=== PATIENT | female | born 1965 | race Caucasian/White ===

== ENCOUNTER 2019-05-05 19:20 | Emergency (ER) | payer SELFPAY ==
[~2019-05-05] VITALS: Ht 167.6 cm; Wt 84.0 kg
[2019-05-05] MEDS ORDERED: HYDROCODONE/ACETAMINOPHEN 5-325 MG TABLET PO ONE (20:15)
[2019-05-05] MEDS ORDERED: LIDOCAINE 1% 10 ML VIAL INJ ONE (20:15)
[2019-05-05] MEDS ORDERED: POVIDONE-IODINE 10% 120 ML SOLUTION TP ONE (20:15)
[2019-05-05] MEDS ORDERED: AMOX TR/POT CLAV 875 MG/125 MG TABLET PO ONE (21:00)
[2019-05-05 21:24] VITALS: BP 143/85
== END 2019-05-05 21:33 | disposition home or self-care (01) ==
LOC: EMS 19:20
DX: S01.511A Laceration without foreign body of lip, initial encounter (principal); W54.0XXA Bitten by dog, initial encounter; Y93.89 Activity, other specified; Y92.89 Other specified places as the place of occurrence of the external cause; Y99.8 Other external cause status
CPT/HCPCS: 40650; 99284; J3490

== ENCOUNTER 2019-05-06 13:59 | Emergency (ER) | payer SELFPAY ==
[~2019-05-06] VITALS: Ht 162.6 cm; Wt 84.0 kg
[2019-05-06] MEDS ORDERED: PERTUSS(ACELL),DIPH,TET VAC/PF 0.5 ML VIAL IM ONE (15:00)
[2019-05-06 15:21] VITALS: BP 147/56
== END 2019-05-06 15:23 | disposition home or self-care (01) ==
LOC: EMS 14:00
DX: Z23 Encounter for immunization (principal)
CPT/HCPCS: 90471; 90715

== ENCOUNTER 2019-05-12 16:59 | Emergency (ER) | payer SELFPAY ==
[~2019-05-12] VITALS: Ht 165.1 cm; Wt 84.0 kg
[2019-05-12 18:25] VITALS: BP 136/80
== END 2019-05-12 18:30 | disposition home or self-care (01) ==
LOC: EMS 16:59
DX: S01.511D Laceration without foreign body of lip, subsequent encounter (principal); Z48.02 Encounter for removal of sutures; W54.0XXD Bitten by dog, subsequent encounter

== ENCOUNTER 2022-12-21 05:39 | Emergency (ER) | payer MEDICAID, OTHER ==
[~2022-12-21] VITALS: Ht 162.6 cm; Wt 81.8 kg
[2022-12-21 05:44] VITALS: BP 156/81
[2022-12-21 08:04] LABS: COVID AG,FIA SOURCE NASAL SWAB
[2022-12-21 08:27] LABS: INFLUENZA TYPE A NEGATIVE FOR TYPE A (NEGATIVE); INFLUENZA TYPE B NEGATIVE FOR TYPE B (NEGATIVE)
[2022-12-21 08:36] LABS: RAPID GROUP A STREP NEGATIVE (NEGATIVE)
[2022-12-21] MEDS ORDERED: CefTRIAXone 1 GM/DEXTROSE 50 ML IV ONE (08:45)
[2022-12-21] MEDS ORDERED: DEXAMETHASONE SOD PHOS 4 MG/ML 5 ML VIAL IVP ONE (08:45)
[2022-12-21] MEDS ORDERED: KETOROLAC TROMETHAMINE 30 MG/ML VIAL IVP ONE (08:45)
[2022-12-21] MEDS ORDERED: PENI500T2 PO (10:39)
== END 2022-12-21 11:38 | disposition home or self-care (01) ==
LOC: EMS 05:41
DX: J36 Peritonsillar abscess (principal); Z20.822 Contact with and (suspected) exposure to COVID-19
CPT/HCPCS: 99284; 96365; 96375; 87426; 87430; 87804; J0696; J1100; J1885

== ENCOUNTER 2025-03-03 05:02 | Inpatient (IN) | payer OTHER ==
[~2025-03-03] VITALS: Ht 167.6 cm; Wt 79.4 kg
[2025-03-03] VITALS (19 sets, daily range): BP systolic 82–127; BP diastolic 41–68; PULSE 78–136; RESP 24–31; TEMP 94.8–99.4; O2SAT 86–100
[~2025-03-03 05:02] MED LIST: PENI500T2 PO
[2025-03-03] MEDS ORDERED: ETOMIDATE 2 MG/ML 10 ML VIAL ONE (05:07)
[2025-03-03] MEDS ORDERED: ROCURONIUM BROMIDE 10 MG/ML 5 ML VIAL ONE (05:08)
[2025-03-03] MEDS: ETOMIDATE 2 MG/ML 10 ML VIAL IVP ONE (05:11)
[2025-03-03] MEDS: ROCURONIUM BROMIDE 10 MG/ML 5 ML VIAL IVP ONE (05:11)
[2025-03-03] MEDS ORDERED: 0.9% SODIUM CHLORIDE 10 ML SYRINGE IVP PRN (05:30)
[2025-03-03 05:42] LABS: PLATELET COUNT (AUTO) 331 K/uL (150-450); RED BLOOD CELL COUNT(AUTO) 4.53 MIL/uL (4.00-5.20); RED CELL DISTRIBUTION WIDTH 15.2 % (11.5-14.5); WHITE BLOOD COUNT (AUTO) 13.8 K/uL (4.5-11.0)
[2025-03-03 05:43] LABS: CALCIUM, TOTAL 9.3 mg/dL (8.8-10.5); CREATININE 1.09 mg/dL (0.60-1.30); GLOMERULAR FILTR. RATE CALC 51 mL/min (>60); GLUCOSE,RANDOM 214 mg/dL (70-110); SODIUM SERUM 145 mmol/L (136-145); UREA NITROGEN, BLOOD 18 mg/dL (7-18)
[2025-03-03] MEDS: PROPOFOL 1000 MG/ISO-OSM 100 ML IV PRN (05:44)
[2025-03-03] MEDS ORDERED: PROPOFOL 1000 MG/ISO-OSM 100 ML IV PRN (05:45)
[2025-03-03 05:47] LABS: ASPARTATE AMINOTRANSFERASE 42 U/L (15-37); CREATINE KINASE, TOTAL ONLY 120 U/L (26-192); TOTAL PROTEIN, SERUM 7.2 g/dL (6.4-8.2)
[2025-03-03 05:50] LABS: TROPONIN I-HIGH SENSITIVITY 12 ng/L (<51)
[2025-03-03 05:55] LABS: LACTIC ACID 14.3 mmol/L (0.4-2.0)
[2025-03-03] MEDS: ALBUTEROL SULFATE 2.5 MG/0.5 ML NEB SOLUTION NEB ONE ×3 (06:27→10:09)
[2025-03-03 06:31] LABS: ABG BASE EXCESS -12.1 mmol/L (-2.0-3.0); ABG CARBOXYHEMOGLOBIN 0.7 % (0.5-1.5); ABG HCO3 15.1 mmol/L (21.0-28.0); ABG METHEMOGLOBIN 0.7 % (0.0-1.5); ABG OXYGEN CONTENT 17.3 mL/dL (15.0-23.0); ABG OXYGEN SATURATION 94.5 % (94.0-98.0); ABG OXYHEMOGLOBIN 93.2 % (94.0-98.0); ABG PCO2 50 mmHg (32.0-45.0); ABG TOTAL HEMOGLOBIN 13.1 G/dL (12.0-16.0); FRACTIONATED INSPIRED OXYGEN 100.0 % (21-100.0); PO2, ARTERIAL BG 97.2 mmHg (83.0-108.0); SOURCE, BLOOD GAS ARTERIAL; TEMPERATURE, FAHRENHEIT, BG 99.4 FAHREN (96.0-98.6)
[2025-03-03 06:32] LABS: ABG A-A DIFF O2 564.5 mmHg (10-20.0); ABG PH 7.144 (7.350-7.450); ALLEN TEST, BLOOD GAS Positive; INSIPIRATORY PRESSURE, BG 20 cm H2O; O2 DEVICE,BLOOD GAS VENTILATOR (ROOM AIR); PEEP,BG 10 cm H2O; SITE, BLOOD GAS RT RADIAL; VENT MODE, BG Press. Control Vent (ROOM AIR)
[2025-03-03] MEDS: IPRATROPIUM BROMIDE 0.5 MG/2.5 ML NEB SOLUTION NEB ONE ×2 (06:32→10:10)
[2025-03-03] MEDS: FUROSEMIDE 20 MG/2 ML VIAL IVP ONE ×2 (06:34→07:56)
[2025-03-03 06:47] LABS: APPEARANCE,URINE HAZY (CLEAR); GLUCOSE, URINE (UA) 300-500 mg/dL (NEGATIVE); LEUKOCYTE ESTERASE ,URINE NEGATIVE (NEGATIVE); NITRATE,URINE NEGATIVE (NEGATIVE); OCCULT BLOOD,URINE MODERATE (NEGATIVE); SPECIFIC GRAVITIY, URINE 1.014 (1.003-1.030)
[2025-03-03 07:13] LABS: SULFOSALICYLIC ACID,URINE 3+ (Negative)
[2025-03-03 07:14] LABS: SQUAMOUS EPITHELIAL CELL,UR Few /LPF (None Seen)
[2025-03-03] MEDS: NITROGLYCERIN 2% (1 GM=INCH) OINTMENT PACKET TP ONE (07:56)
[2025-03-03] MEDS ORDERED: ALBUTEROL SULFATE 2.5 MG/0.5 ML 5 ML NEB SOLUTION NEB ONE (09:45)
[2025-03-03] MEDS ORDERED: SODIUM CHLORIDE 0.9% 500 ML IV ONE ×2 (10:05→11:11)
[2025-03-03] MEDS ORDERED: MAGNESIUM HYDROXIDE SUSPENSION 30 ML UDCUP PO PRN (10:30)
[2025-03-03] MEDS ORDERED: IPRATROPIUM BROMIDE 0.5 MG/2.5 ML NEB SOLUTION NEB PRN (10:30)
[2025-03-03] MEDS ORDERED: ONDANSETRON HCL 4 MG/2 ML VIAL IVP PRN (10:30)
[2025-03-03] MEDS ORDERED: BISACODYL 10 MG RECTAL RECTAL SUPPOSITORY PR PRN (10:30)
[2025-03-03] MEDS ORDERED: ALBUTEROL SULFATE 2.5 MG/0.5 ML NEB SOLUTION NEB PRN (10:30)
[2025-03-03 10:37] LABS: ABG BASE EXCESS -7.6 mmol/L (-2.0-3.0); ABG CARBOXYHEMOGLOBIN 0.4 % (0.5-1.5); ABG HCO3 17.6 mmol/L (21.0-28.0); ABG METHEMOGLOBIN 0.0 % (0.0-1.5); ABG OXYGEN CONTENT 17.8 mL/dL (15.0-23.0); ABG OXYGEN SATURATION 94.2 % (94.0-98.0); ABG OXYHEMOGLOBIN 93.8 % (94.0-98.0); ABG TOTAL HEMOGLOBIN 13.4 G/dL (12.0-16.0); FRACTIONATED INSPIRED OXYGEN 100.0 % (21-100.0); PO2, ARTERIAL BG 95.9 mmHg (83.0-108.0); SOURCE, BLOOD GAS ARTERIAL; TEMPERATURE, FAHRENHEIT, BG 99.1 FAHREN (96.0-98.6)
[2025-03-03 10:44] LABS: ABG PCO2 69 mmHg (32.0-45.0); ABG PH 7.119 (7.350-7.450)
[2025-03-03 10:48] LABS: ABG A-A DIFF O2 547.7 mmHg (10-20.0); ALLEN TEST, BLOOD GAS NO; O2 DEVICE,BLOOD GAS VENTILATOR (ROOM AIR); PEEP,BG 12 cm H2O; SET RATE, BG 30.0 min.; SITE, BLOOD GAS ARTERIAL LINE; VT, ABG 360 ml
[2025-03-03 10:49] LABS: SPONTANEOUS VT, BG 376 ml
[2025-03-03] MEDS: NOREPINEPHRINE 8 MG/0.9 % NACL 250 ML IV PRN (11:15)
[2025-03-03] MEDS ORDERED: PHENYLEPHRINE 200 MG/D5%-WATER 250 ML IV PRN (11:15)
[2025-03-03] MEDS: ALBUTEROL SULFATE 2.5 MG/0.5 ML NEB SOLUTION NEB SCH (11:32)
[2025-03-03] MEDS: IPRATROPIUM BROMIDE 0.5 MG/2.5 ML NEB SOLUTION NEB SCH (11:32)
[2025-03-03 11:38] LABS: ABG BASE EXCESS -8.6 mmol/L (-2.0-3.0); ABG CARBOXYHEMOGLOBIN 0.3 % (0.5-1.5); ABG HCO3 17.5 mmol/L (21.0-28.0); ABG METHEMOGLOBIN 0.3 % (0.0-1.5); ABG OXYGEN CONTENT 17.9 mL/dL (15.0-23.0); ABG OXYGEN SATURATION 97.6 % (94.0-98.0); ABG OXYHEMOGLOBIN 97.0 % (94.0-98.0); ABG PCO2 53 mmHg (32.0-45.0); ABG TOTAL HEMOGLOBIN 13.0 G/dL (12.0-16.0); FRACTIONATED INSPIRED OXYGEN 100.0 % (21-100.0); PO2, ARTERIAL BG 121.5 mmHg (83.0-108.0); SOURCE, BLOOD GAS ARTERIAL; TEMPERATURE, FAHRENHEIT, BG 99.0 FAHREN (96.0-98.6)
[2025-03-03 11:39] LABS: ABG A-A DIFF O2 537.7 mmHg (10-20.0); ABG PH 7.185 (7.350-7.450); O2 DEVICE,BLOOD GAS VENTILATOR (ROOM AIR); PEEP,BG 12 cm H2O; SET RATE, BG 30.0 min.; SITE, BLOOD GAS ARTERIAL LINE; VT, ABG 440 ml
[2025-03-03 11:48] LABS: TROPONIN I-HIGH SENSITIVITY 761 ng/L (<51)
[2025-03-03] MEDS: PIPERACILLIN/TAZO 3.375 GM/D5W 50 ML IV SCH (12:40)
[2025-03-03] MEDS: FentaNYL CIT 1000MCG/0.9% NACL 100 ML IV PRN (13:22)
[2025-03-03 13:31] LABS: CREATINE KINASE, TOTAL ONLY 111.0 U/L (26-192)
[2025-03-03 13:37] LABS: TROPONIN I-HIGH SENSITIVITY 1161 ng/L (<51)
[2025-03-03 15:06] LABS: ABG BASE EXCESS -11.0 mmol/L (-2.0-3.0); ABG CARBOXYHEMOGLOBIN 0.2 % (0.5-1.5); ABG HCO3 16.0 mmol/L (21.0-28.0); ABG METHEMOGLOBIN 0.1 % (0.0-1.5); ABG OXYGEN CONTENT 19.5 mL/dL (15.0-23.0); ABG OXYGEN SATURATION 99.7 % (94.0-98.0); ABG OXYHEMOGLOBIN 99.4 % (94.0-98.0); ABG PCO2 46 mmHg (32.0-45.0); ABG TOTAL HEMOGLOBIN 13.3 G/dL (12.0-16.0); FRACTIONATED INSPIRED OXYGEN 100.0 % (21-100.0); SOURCE, BLOOD GAS ARTERIAL; TEMPERATURE, FAHRENHEIT, BG 96.5 FAHREN (96.0-98.6)
[2025-03-03 15:07] LABS: ABG A-A DIFF O2 316.3 mmHg (10-20.0); ABG PH 7.193 (7.350-7.450); O2 DEVICE,BLOOD GAS VENTILATOR (ROOM AIR); PATIENT RATE, BG 30.0 min.; PEEP,BG 12 cm H2O; PO2, ARTERIAL BG 354.2 mmHg (83.0-108.0); SET RATE, BG 30.0 min.; SITE, BLOOD GAS ARTERIAL LINE; VT, ABG 440 ml
[2025-03-03 15:38] LABS: ASPARTATE AMINOTRANSFERASE 120.0 U/L (15-37); CALCIUM, TOTAL 8.0 mg/dL (8.8-10.5); CREATININE 1.26 mg/dL (0.60-1.30); GLOMERULAR FILTR. RATE CALC 43.0 mL/min (>60); GLUCOSE,RANDOM 220.0 mg/dL (70-110); PHOSPHORUS 8.4 mg/dL (2.5-4.9); SODIUM SERUM 140.0 mmol/L (136-145); TOTAL PROTEIN, SERUM 6.3 g/dL (6.4-8.2); UREA NITROGEN, BLOOD 29.0 mg/dL (7-18)
[2025-03-03] MEDS: POTASSIUM CHL 10 MEQ/WATER 50 ML IV SCH (16:40)
[2025-03-03] MEDS: HEPARIN SODIUM,PORCINE 5,000 UNITS/ML VIAL SQ SCH (16:40)
[2025-03-03 17:24] LABS: TROPONIN I-HIGH SENSITIVITY 812 ng/L (<51)
[2025-03-03] MEDS ORDERED: DEXTROSE 50%-WATER 25 GM/50 ML SYRINGE IVP PRN (18:15)
[2025-03-03] MEDS: INSULIN LISPRO 100 UNITS/ML SQ PRN (18:53)
[2025-03-03 19:25] LABS: GLUCOMETER DEV NAME(LOC) ICU.S6; GLUCOSE,POINT OF CARE 192 MG/DL (70-110)
[2025-03-03] MEDS: DOCUSATE SODIUM 100 MG CAPSULE PO SCH (21:00)
[2025-03-03 21:31] LABS: ABG BASE EXCESS -9.8 mmol/L (-2.0-3.0); ABG CARBOXYHEMOGLOBIN 0.6 % (0.5-1.5); ABG HCO3 16.7 mmol/L (21.0-28.0); ABG METHEMOGLOBIN 0.6 % (0.0-1.5); ABG OXYGEN CONTENT 18.3 mL/dL (15.0-23.0); ABG OXYGEN SATURATION 98.5 % (94.0-98.0); ABG OXYHEMOGLOBIN 97.3 % (94.0-98.0); ABG PCO2 44 mmHg (32.0-45.0); ABG TOTAL HEMOGLOBIN 13.2 G/dL (12.0-16.0); FRACTIONATED INSPIRED OXYGEN 55.0 % (21-100.0); PO2, ARTERIAL BG 107.3 mmHg (83.0-108.0); SOURCE, BLOOD GAS ARTERIAL; TEMPERATURE, FAHRENHEIT, BG 92.1 FAHREN (96.0-98.6)
[2025-03-03 21:41] LABS: PHOSPHORUS 5.5 mg/dL (2.5-4.9)
[2025-03-03 21:41] LABS: ABG A-A DIFF O2 240.3 mmHg (10-20.0); ABG PH 7.222 (7.350-7.450); O2 DEVICE,BLOOD GAS VENT (ROOM AIR); PEEP,BG 10 cm H2O; SET RATE, BG 30.0 min.; SITE, BLOOD GAS ARTERIAL LINE; VT, ABG 440 ml
[2025-03-03] MEDS: ETHYL ALCOHOL 62% ANTISEPTIC NASAL SANITIZER 0.6 ML AMPUL NASAL SCH (21:59)
[2025-03-03 23:15] LABS: ASPARTATE AMINOTRANSFERASE 93.0 U/L (15-37); CALCIUM, TOTAL 8.2 mg/dL (8.8-10.5); CREATININE 1.0 mg/dL (0.60-1.30); GLOMERULAR FILTR. RATE CALC 57.0 mL/min (>60); GLUCOSE,RANDOM 279.0 mg/dL (70-110); SODIUM SERUM 143.0 mmol/L (136-145); TOTAL PROTEIN, SERUM 6.4 g/dL (6.4-8.2); UREA NITROGEN, BLOOD 28.0 mg/dL (7-18)
[2025-03-04] VITALS (18 sets, daily range): BP systolic 111–147; BP diastolic 39–71; PULSE 74–126; RESP 24–30; TEMP 90.9–99.2; O2SAT 99–100
[2025-03-04 00:46] LABS: GLUCOMETER DEV NAME(LOC) ICU.S6; GLUCOSE,POINT OF CARE 256 MG/DL (70-110)
[2025-03-04] MEDS: PROPOFOL 1000 MG/ISO-OSM 100 ML IV PRN (02:57)
[2025-03-04 03:35] LABS: ABG BASE EXCESS -8.5 mmol/L (-2.0-3.0); ABG CARBOXYHEMOGLOBIN 0.6 % (0.5-1.5); ABG HCO3 17.9 mmol/L (21.0-28.0); ABG METHEMOGLOBIN 0.6 % (0.0-1.5); ABG OXYGEN CONTENT 17.4 mL/dL (15.0-23.0); ABG OXYGEN SATURATION 98.4 % (94.0-98.0); ABG OXYHEMOGLOBIN 97.2 % (94.0-98.0); ABG PCO2 38 mmHg (32.0-45.0); ABG PH 7.291 (7.350-7.450); ABG TOTAL HEMOGLOBIN 12.6 G/dL (12.0-16.0); FRACTIONATED INSPIRED OXYGEN 45.0 % (21-100.0); PO2, ARTERIAL BG 97.3 mmHg (83.0-108.0); SOURCE, BLOOD GAS ARTERIAL; TEMPERATURE, FAHRENHEIT, BG 92.3 FAHREN (96.0-98.6)
[2025-03-04 03:38] LABS: PHOSPHORUS 3.1 mg/dL (2.5-4.9)
[2025-03-04 03:49] LABS: ASPARTATE AMINOTRANSFERASE 69.0 U/L (15-37); CALCIUM, TOTAL 8.4 mg/dL (8.8-10.5); CREATININE 0.98 mg/dL (0.60-1.30); GLOMERULAR FILTR. RATE CALC 58.0 mL/min (>60); GLUCOSE,RANDOM 320.0 mg/dL (70-110); SODIUM SERUM 141.0 mmol/L (136-145); TOTAL PROTEIN, SERUM 6.1 g/dL (6.4-8.2); UREA NITROGEN, BLOOD 27.0 mg/dL (7-18)
[2025-03-04 03:56] LABS: ABG A-A DIFF O2 183.6 mmHg (10-20.0); O2 DEVICE,BLOOD GAS VENT (ROOM AIR); PEEP,BG 8 cm H2O; SET RATE, BG 30.0 min.; SITE, BLOOD GAS ARTERIAL LINE; VT, ABG 440 ml
[2025-03-04] MEDS ORDERED: POTASSIUM CHLORIDE 10% 40 MEQ/30 ML LIQUID UDCUP GT PRN (04:00)
[2025-03-04] MEDS: POTASSIUM CHL 10 MEQ/WATER 50 ML IV PRN (04:11)
[2025-03-04 05:12] LABS: BAND NEUTROPHILS % (MANUAL) 0 % (0-5)
[2025-03-04 05:15] LABS: PLATELET COUNT (AUTO) 163 K/uL (150-450); RED BLOOD CELL COUNT(AUTO) 3.93 MIL/uL (4.00-5.20); RED CELL DISTRIBUTION WIDTH 13.8 % (11.5-14.5); WHITE BLOOD COUNT (AUTO) 12.8 K/uL (4.5-11.0)
[2025-03-04 05:21] LABS: LYMPHOCYTES % (MANUAL) 5 % (22-44); MONOCYTES % (MANUAL) 3 % (2-9); SEGMENTED NEUTROPHILS % 92 % (40-70)
[2025-03-04 06:30] LABS: GLUCOMETER DEV NAME(LOC) ICUN.5; GLUCOSE,POINT OF CARE 284 MG/DL (70-110)
[2025-03-04 09:12] LABS: PHOSPHORUS 3.8 mg/dL (2.5-4.9)
[2025-03-04 09:13] LABS: ASPARTATE AMINOTRANSFERASE 58 U/L (15-37); CALCIUM, TOTAL 8.6 mg/dL (8.8-10.5); CREATININE 0.72 mg/dL (0.60-1.30); GLOMERULAR FILTR. RATE CALC > 60 mL/min (>60); GLUCOSE,RANDOM 304 mg/dL (70-110); SODIUM SERUM 140 mmol/L (136-145); TOTAL PROTEIN, SERUM 6.2 g/dL (6.4-8.2); UREA NITROGEN, BLOOD 24 mg/dL (7-18)
[2025-03-04] MEDS: PANTOPRAZOLE SODIUM 40 MG/VIAL IVP SCH (09:26)
[2025-03-04 10:05] LABS: ABG BASE EXCESS -6.1 mmol/L (-2.0-3.0); ABG CARBOXYHEMOGLOBIN 0.1 % (0.5-1.5); ABG HCO3 19.5 mmol/L (21.0-28.0); ABG METHEMOGLOBIN 0.3 % (0.0-1.5); ABG OXYGEN CONTENT 16.4 mL/dL (15.0-23.0); ABG OXYGEN SATURATION 96.9 % (94.0-98.0); ABG OXYHEMOGLOBIN 96.5 % (94.0-98.0); ABG PCO2 39 mmHg (32.0-45.0); ABG PH 7.321 (7.350-7.450); ABG TOTAL HEMOGLOBIN 12.0 G/dL (12.0-16.0); FRACTIONATED INSPIRED OXYGEN 45.0 % (21-100.0); PO2, ARTERIAL BG 76.8 mmHg (83.0-108.0); SOURCE, BLOOD GAS ARTERIAL; TEMPERATURE, FAHRENHEIT, BG 90.9 FAHREN (96.0-98.6)
[2025-03-04 10:06] LABS: O2 DEVICE,BLOOD GAS VENTILATOR (ROOM AIR); PATIENT RATE, BG 24.0 min.; PEEP,BG 5 cm H2O; SET RATE, BG 24.0 min.; SITE, BLOOD GAS ALINE; VT, ABG 440 ml
[2025-03-04] MEDS: FentaNYL CIT 1000MCG/0.9% NACL 100 ML IV PRN (14:14)
[2025-03-04 15:05] LABS: ABG BASE EXCESS -3.2 mmol/L (-2.0-3.0); ABG CARBOXYHEMOGLOBIN 0.3 % (0.5-1.5); ABG HCO3 21.8 mmol/L (21.0-28.0); ABG METHEMOGLOBIN 0.3 % (0.0-1.5); ABG OXYGEN CONTENT 16.0 mL/dL (15.0-23.0); ABG OXYGEN SATURATION 95.9 % (94.0-98.0); ABG OXYHEMOGLOBIN 95.3 % (94.0-98.0); ABG PCO2 41 mmHg (32.0-45.0); ABG PH 7.355 (7.350-7.450); ABG TOTAL HEMOGLOBIN 11.9 G/dL (12.0-16.0); FRACTIONATED INSPIRED OXYGEN 40.0 % (21-100.0); PO2, ARTERIAL BG 76.9 mmHg (83.0-108.0); SOURCE, BLOOD GAS ARTERIAL; TEMPERATURE, FAHRENHEIT, BG 95.5 FAHREN (96.0-98.6)
[2025-03-04 15:06] LABS: ALLEN TEST, BLOOD GAS POS; O2 DEVICE,BLOOD GAS VENTILATOR (ROOM AIR); PATIENT RATE, BG 26.0 min.; PEEP,BG 5 cm H2O; SET RATE, BG 26.0 min.; SITE, BLOOD GAS RT BRACHIAL; VT, ABG 440 ml
[2025-03-04 15:16] LABS: PHOSPHORUS 3.6 mg/dL (2.5-4.9)
[2025-03-04 17:38] LABS: CALCIUM, TOTAL 9.1 mg/dL (8.8-10.5); CREATININE 0.68 mg/dL (0.60-1.30); GLOMERULAR FILTR. RATE CALC > 60 mL/min (>60); GLUCOSE,RANDOM 239 mg/dL (70-110); SODIUM SERUM 144 mmol/L (136-145); UREA NITROGEN, BLOOD 26 mg/dL (7-18)
[2025-03-04 17:43] LABS: ASPARTATE AMINOTRANSFERASE 57 U/L (15-37); TOTAL PROTEIN, SERUM 6.2 g/dL (6.4-8.2)
[2025-03-04 17:55] LABS: GLUCOMETER DEV NAME(LOC) ICUN.5; GLUCOSE,POINT OF CARE 246 MG/DL (70-110)
[2025-03-04] MEDS ORDERED: HEPARIN SODIUM,PORCINE 5,000 UNITS/ML VIAL IVP PRN (18:15)
[2025-03-04 18:36] LABS: PLATELET COUNT (AUTO) 183 K/uL (150-450); RED BLOOD CELL COUNT(AUTO) 3.87 MIL/uL (4.00-5.20); RED CELL DISTRIBUTION WIDTH 14.2 % (11.5-14.5); WHITE BLOOD COUNT (AUTO) 23.0 K/uL (4.5-11.0)
[2025-03-04] MEDS: HEPARIN SODIUM 25000 UNITS/D5W 250 ML IV PRN (19:33)
[2025-03-04] MEDS: ACETAMINOPHEN 325 MG TABLET PO PRN (21:45)
[2025-03-04 23:41] LABS: GLUCOMETER DEV NAME(LOC) ICU.S6; GLUCOSE,POINT OF CARE 182 MG/DL (70-110)
[2025-03-05] VITALS (21 sets, daily range): BP systolic 109–148; BP diastolic 47–65; PULSE 98–125; RESP 26–28; TEMP 99.5–100.8; O2SAT 94–99
[2025-03-05 02:26] LABS: GLUCOMETER DEV NAME(LOC) ICU.S6; GLUCOSE,POINT OF CARE 168 MG/DL (70-110)
[2025-03-05 05:42] LABS: PLATELET COUNT (AUTO) 181 K/uL (150-450); RED BLOOD CELL COUNT(AUTO) 3.53 MIL/uL (4.00-5.20); RED CELL DISTRIBUTION WIDTH 13.9 % (11.5-14.5); WHITE BLOOD COUNT (AUTO) 24.6 K/uL (4.5-11.0)
[2025-03-05 05:44] LABS: CALCIUM, TOTAL 8.8 mg/dL (8.8-10.5); CREATININE 0.91 mg/dL (0.60-1.30); GLOMERULAR FILTR. RATE CALC > 60 mL/min (>60); GLUCOSE,RANDOM 213 mg/dL (70-110); SODIUM SERUM 145 mmol/L (136-145); UREA NITROGEN, BLOOD 38 mg/dL (7-18)
[2025-03-05 06:35] LABS: GLUCOMETER DEV NAME(LOC) ICU.S6; GLUCOSE,POINT OF CARE 242 MG/DL (70-110)
[2025-03-05] MEDS: DOCUSATE SODIUM 100 MG/10 ML LIQUID UDCUP NG SCH (13:20)
[2025-03-05] MEDS ORDERED: DICL100G60 TP (13:55)
[2025-03-05] MEDS ORDERED: CHOL25TA4 PO (13:55)
[2025-03-05] MEDS ORDERED: XALA2.5OS OU (13:55)
[2025-03-05] MEDS ORDERED: IBUP-1492 PO (13:55)
[2025-03-05] MEDS ORDERED: SODIUM CHLORIDE 0.9% 250 ML IV ONE (22:45)
[2025-03-06] VITALS (23 sets, daily range): BP systolic 106–152; BP diastolic 51–73; PULSE 83–117; RESP 15–30; TEMP 98.7–100.8; O2SAT 96–100
[2025-03-06 02:06] LABS: GLUCOMETER DEV NAME(LOC) ICU.S6; GLUCOSE,POINT OF CARE 205 MG/DL (70-110)
[2025-03-06 02:06] LABS: GLUCOMETER DEV NAME(LOC) ICU.S6; GLUCOSE,POINT OF CARE 220 MG/DL (70-110)
[2025-03-06 02:06] LABS: GLUCOMETER DEV NAME(LOC) ICU.S6; GLUCOSE,POINT OF CARE 192 MG/DL (70-110)
[2025-03-06 05:49] LABS: PLATELET COUNT (AUTO) 198 K/uL (150-450); RED BLOOD CELL COUNT(AUTO) 3.38 MIL/uL (4.00-5.20); RED CELL DISTRIBUTION WIDTH 14.0 % (11.5-14.5); WHITE BLOOD COUNT (AUTO) 25.2 K/uL (4.5-11.0)
[2025-03-06 05:53] LABS: CALCIUM, TOTAL 8.7 mg/dL (8.8-10.5); CREATININE 0.70 mg/dL (0.60-1.30); GLOMERULAR FILTR. RATE CALC > 60 mL/min (>60); GLUCOSE,RANDOM 198 mg/dL (70-110); SODIUM SERUM 146 mmol/L (136-145); UREA NITROGEN, BLOOD 41 mg/dL (7-18)
[2025-03-06 07:00] LABS: GLUCOMETER DEV NAME(LOC) ICU.S6; GLUCOSE,POINT OF CARE 167 MG/DL (70-110)
[2025-03-06] MEDS ORDERED: SODIUM CHLORIDE 0.9% 250 ML IV ONE (08:02)
[2025-03-06] MEDS: DEXMEDETOMIDINE 400 MCG/NS 100 ML IV PRN (09:05)
[2025-03-06 12:15] LABS: GLUCOMETER DEV NAME(LOC) ICU.S6; GLUCOSE,POINT OF CARE 160 MG/DL (70-110)
[2025-03-06 14:44] LABS: ABG BASE EXCESS 3.3 mmol/L (-2.0-3.0); ABG CARBOXYHEMOGLOBIN 0.3 % (0.5-1.5); ABG HCO3 27.2 mmol/L (21.0-28.0); ABG METHEMOGLOBIN 0.3 % (0.0-1.5); ABG OXYGEN CONTENT 13.7 mL/dL (15.0-23.0); ABG OXYGEN SATURATION 96.8 % (94.0-98.0); ABG OXYHEMOGLOBIN 96.2 % (94.0-98.0); ABG PCO2 44 mmHg (32.0-45.0); ABG PH 7.421 (7.350-7.450); ABG TOTAL HEMOGLOBIN 10.0 G/dL (12.0-16.0); FRACTIONATED INSPIRED OXYGEN 35.0 % (21-100.0); PO2, ARTERIAL BG 108.1 mmHg (83.0-108.0); SOURCE, BLOOD GAS ARTERIAL; TEMPERATURE, FAHRENHEIT, BG 100.9 FAHREN (96.0-98.6)
[2025-03-06 14:45] LABS: ABG A-A DIFF O2 89.4 mmHg (10-20.0); ALLEN TEST, BLOOD GAS Positive; O2 DEVICE,BLOOD GAS VENTILATOR (ROOM AIR); PATIENT RATE, BG 16.0 min.; PEEP,BG 5 cm H2O; PRESSURE SUPPORT, BG 8 cm H2O; SITE, BLOOD GAS LFT RADIAL; SPONTANEOUS VT, BG 440 ml; VENT MODE, BG CPAP (ROOM AIR)
[2025-03-06 18:26] LABS: GLUCOMETER DEV NAME(LOC) ICUN.5; GLUCOSE,POINT OF CARE 175 MG/DL (70-110)
[2025-03-07] VITALS (38 sets, daily range): BP systolic 113–142; BP diastolic 46–92; PULSE 57–102; RESP 20–32; TEMP 99.4–102.1; O2SAT 97–99
[2025-03-07 01:00] LABS: GLUCOMETER DEV NAME(LOC) ICU.S6; GLUCOSE,POINT OF CARE 139 MG/DL (70-110)
[2025-03-07 01:00] LABS: GLUCOMETER DEV NAME(LOC) ICU.S6; GLUCOSE,POINT OF CARE 147 MG/DL (70-110)
[2025-03-07 06:25] LABS: PLATELET COUNT (AUTO) 183 K/uL (150-450); RED BLOOD CELL COUNT(AUTO) 3.33 MIL/uL (4.00-5.20); RED CELL DISTRIBUTION WIDTH 13.9 % (11.5-14.5); WHITE BLOOD COUNT (AUTO) 17.1 K/uL (4.5-11.0)
[2025-03-07 06:44] LABS: ASPARTATE AMINOTRANSFERASE 698 U/L (15-37); CALCIUM, TOTAL 8.5 mg/dL (8.8-10.5); CREATININE 0.67 mg/dL (0.60-1.30); GLOMERULAR FILTR. RATE CALC > 60 mL/min (>60); GLUCOSE,RANDOM 160 mg/dL (70-110); SODIUM SERUM 146 mmol/L (136-145); TOTAL PROTEIN, SERUM 6.1 g/dL (6.4-8.2); UREA NITROGEN, BLOOD 36 mg/dL (7-18)
[2025-03-07] MEDS: HEPARIN SODIUM,PORCINE 5,000 UNITS/ML VIAL IVP PRN (06:53)
[2025-03-07 11:43] LABS: PLATELET COUNT (AUTO) 180 K/uL (150-450); RED BLOOD CELL COUNT(AUTO) 3.31 MIL/uL (4.00-5.20); RED CELL DISTRIBUTION WIDTH 13.7 % (11.5-14.5); WHITE BLOOD COUNT (AUTO) 16.5 K/uL (4.5-11.0)
[2025-03-07 15:00] LABS: ABG BASE EXCESS 3.6 mmol/L (-2.0-3.0); ABG CARBOXYHEMOGLOBIN 0.3 % (0.5-1.5); ABG HCO3 27.5 mmol/L (21.0-28.0); ABG METHEMOGLOBIN 0.3 % (0.0-1.5); ABG OXYGEN CONTENT 13.6 mL/dL (15.0-23.0); ABG OXYGEN SATURATION 96.4 % (94.0-98.0); ABG OXYHEMOGLOBIN 95.8 % (94.0-98.0); ABG PCO2 43 mmHg (32.0-45.0); ABG PH 7.434 (7.350-7.450); ABG TOTAL HEMOGLOBIN 10.0 G/dL (12.0-16.0); FRACTIONATED INSPIRED OXYGEN 35.0 % (21-100.0); PO2, ARTERIAL BG 102.9 mmHg (83.0-108.0); SOURCE, BLOOD GAS ARTERIAL; TEMPERATURE, FAHRENHEIT, BG 101.7 FAHREN (96.0-98.6)
[2025-03-07 15:01] LABS: ABG A-A DIFF O2 95.5 mmHg (10-20.0); ALLEN TEST, BLOOD GAS Positive; O2 DEVICE,BLOOD GAS VENTILATOR (ROOM AIR); PEEP,BG 5 cm H2O; PRESSURE SUPPORT, BG 8 cm H2O; SITE, BLOOD GAS RT RADIAL; VENT MODE, BG CPAP (ROOM AIR)
[2025-03-07 16:25] LABS: GLUCOMETER DEV NAME(LOC) ICU.S6; GLUCOSE,POINT OF CARE 160 MG/DL (70-110)
[2025-03-07 18:25] LABS: GLUCOMETER DEV NAME(LOC) ICU.S6; GLUCOSE,POINT OF CARE 138 MG/DL (70-110)
[2025-03-07 19:51] LABS: GLUCOMETER DEV NAME(LOC) ICUN.5; GLUCOSE,POINT OF CARE 148 MG/DL (70-110)
[2025-03-08] VITALS (25 sets, daily range): BP systolic 94–147; BP diastolic 28–76; PULSE 61–104; RESP 22–33; TEMP 96.9–100.8; O2SAT 96–100
[2025-03-08 04:56] LABS: GLUCOMETER DEV NAME(LOC) ICUN.5; GLUCOSE,POINT OF CARE 142 MG/DL (70-110)
[2025-03-08 05:08] LABS: HEPATITIS B CORE IGM Negative (Negative); HEPATITIS C AB (EIA) Non Reactive (Non Reactive)
[2025-03-08 06:09] LABS: PLATELET COUNT (AUTO) 154 K/uL (150-450); RED BLOOD CELL COUNT(AUTO) 3.25 MIL/uL (4.00-5.20); RED CELL DISTRIBUTION WIDTH 13.7 % (11.5-14.5); WHITE BLOOD COUNT (AUTO) 12.5 K/uL (4.5-11.0)
[2025-03-08 06:18] LABS: CALCIUM, TOTAL 8.7 mg/dL (8.8-10.5); CREATININE 0.47 mg/dL (0.60-1.30); GLOMERULAR FILTR. RATE CALC > 60 mL/min (>60); GLUCOSE,RANDOM 140 mg/dL (70-110); SODIUM SERUM 147 mmol/L (136-145); UREA NITROGEN, BLOOD 32 mg/dL (7-18)
[2025-03-08 08:11] LABS: GLUCOMETER DEV NAME(LOC) ICUN.5; GLUCOSE,POINT OF CARE 127 MG/DL (70-110)
[2025-03-08 10:39] LABS: ABG BASE EXCESS -0.8 mmol/L (-2.0-3.0); ABG CARBOXYHEMOGLOBIN 0.3 % (0.5-1.5); ABG HCO3 24.3 mmol/L (21.0-28.0); ABG METHEMOGLOBIN 0.3 % (0.0-1.5); ABG OXYGEN CONTENT 13.8 mL/dL (15.0-23.0); ABG OXYGEN SATURATION 95.5 % (94.0-98.0); ABG OXYHEMOGLOBIN 94.9 % (94.0-98.0); ABG PCO2 30 mmHg (32.0-45.0); ABG PH 7.487 (7.350-7.450); ABG TOTAL HEMOGLOBIN 10.3 G/dL (12.0-16.0); FRACTIONATED INSPIRED OXYGEN 35.0 % (21-100.0); PO2, ARTERIAL BG 87.1 mmHg (83.0-108.0); SOURCE, BLOOD GAS ARTERIAL; TEMPERATURE, FAHRENHEIT, BG 101.0 FAHREN (96.0-98.6)
[2025-03-08 10:40] LABS: ABG A-A DIFF O2 125.9 mmHg (10-20.0); ALLEN TEST, BLOOD GAS Positive; O2 DEVICE,BLOOD GAS VENTILATOR (ROOM AIR); SITE, BLOOD GAS RT RADIAL; VENT MODE, BG CPAP (ROOM AIR)
[2025-03-08 10:41] LABS: PATIENT RATE, BG 33.0 min.; PEEP,BG 0 cm H2O; PRESSURE SUPPORT, BG 8 cm H2O; SPONTANEOUS VT, BG 590 ml
[2025-03-08 13:21] LABS: GLUCOMETER DEV NAME(LOC) ICU.S6; GLUCOSE,POINT OF CARE 106 MG/DL (70-110)
[2025-03-08] MEDS: METOPROLOL SUCCINATE 25 MG ER TABLET PO SCH (14:21)
[2025-03-08] MEDS: SPIRONOLACTONE 25 MG TABLET PO SCH (14:21)
[2025-03-08] MEDS: ATORVASTATIN CALCIUM 40 MG TABLET PO SCH (14:21)
[2025-03-08] MEDS ORDERED: SODIUM CHLORIDE 0.9% 250 ML IV ONE (17:34)
[2025-03-08 17:48] LABS: ASPARTATE AMINOTRANSFERASE 496 U/L (15-37); CALCIUM, TOTAL 8.6 mg/dL (8.8-10.5); CREATININE 0.56 mg/dL (0.60-1.30); GLOMERULAR FILTR. RATE CALC > 60 mL/min (>60); GLUCOSE,RANDOM 131 mg/dL (70-110); SODIUM SERUM 145 mmol/L (136-145); TOTAL PROTEIN, SERUM 6.0 g/dL (6.4-8.2); UREA NITROGEN, BLOOD 33 mg/dL (7-18)
[2025-03-08 18:10] LABS: GLUCOMETER DEV NAME(LOC) ICUN.5; GLUCOSE,POINT OF CARE 116 MG/DL (70-110)
[2025-03-09] VITALS (21 sets, daily range): BP systolic 93–148; BP diastolic 43–75; PULSE 62–127; RESP 22–42; TEMP 98–101.3; O2SAT 85–100
[2025-03-09 05:21] LABS: PLATELET COUNT (AUTO) 136 K/uL (150-450); RED BLOOD CELL COUNT(AUTO) 3.17 MIL/uL (4.00-5.20); RED CELL DISTRIBUTION WIDTH 13.7 % (11.5-14.5); WHITE BLOOD COUNT (AUTO) 11.5 K/uL (4.5-11.0)
[2025-03-09 05:30] LABS: CALCIUM, TOTAL 8.4 mg/dL (8.8-10.5); CREATININE 0.45 mg/dL (0.60-1.30); GLOMERULAR FILTR. RATE CALC > 60 mL/min (>60); GLUCOSE,RANDOM 146 mg/dL (70-110); SODIUM SERUM 146 mmol/L (136-145); UREA NITROGEN, BLOOD 26 mg/dL (7-18)
[2025-03-09 05:45] LABS: GLUCOMETER DEV NAME(LOC) ICU.S6; GLUCOSE,POINT OF CARE 134 MG/DL (70-110)
[2025-03-09 05:45] LABS: GLUCOMETER DEV NAME(LOC) ICU.S6; GLUCOSE,POINT OF CARE 138 MG/DL (70-110)
[2025-03-09] MEDS: LOSARTAN POTASSIUM 25 MG TABLET PO SCH (08:35)
[2025-03-09] MEDS: ASPIRIN 81 MG CHEWABLE TABLET PO SCH (08:35)
[2025-03-09 08:58] LABS: ABG BASE EXCESS 1.0 mmol/L (-2.0-3.0); ABG CARBOXYHEMOGLOBIN 0.2 % (0.5-1.5); ABG HCO3 25.4 mmol/L (21.0-28.0); ABG METHEMOGLOBIN 0.3 % (0.0-1.5); ABG OXYGEN CONTENT 13.2 mL/dL (15.0-23.0); ABG OXYGEN SATURATION 95.4 % (94.0-98.0); ABG OXYHEMOGLOBIN 94.9 % (94.0-98.0); ABG PCO2 40 mmHg (32.0-45.0); ABG PH 7.419 (7.350-7.450); ABG TOTAL HEMOGLOBIN 9.8 G/dL (12.0-16.0); FRACTIONATED INSPIRED OXYGEN 35.0 % (21-100.0); PO2, ARTERIAL BG 87.2 mmHg (83.0-108.0); SOURCE, BLOOD GAS ARTERIAL; TEMPERATURE, FAHRENHEIT, BG 100.0 FAHREN (96.0-98.6)
[2025-03-09 08:59] LABS: ALLEN TEST, BLOOD GAS Positive; O2 DEVICE,BLOOD GAS VENTILATOR (ROOM AIR); PEEP,BG 5 cm H2O; PRESSURE SUPPORT, BG 8 cm H2O; SITE, BLOOD GAS RT RADIAL; VENT MODE, BG CPAP (ROOM AIR)
[2025-03-09 13:25] LABS: ABG BASE EXCESS 0.3 mmol/L (-2.0-3.0); ABG CARBOXYHEMOGLOBIN 0.2 % (0.5-1.5); ABG HCO3 25.4 mmol/L (21.0-28.0); ABG METHEMOGLOBIN 0.3 % (0.0-1.5); ABG OXYGEN CONTENT 13.9 mL/dL (15.0-23.0); ABG OXYGEN SATURATION 98.5 % (94.0-98.0); ABG OXYHEMOGLOBIN 98.0 % (94.0-98.0); ABG PCO2 28 mmHg (32.0-45.0); ABG PH 7.530 (7.350-7.450); ABG TOTAL HEMOGLOBIN 9.9 G/dL (12.0-16.0); FRACTIONATED INSPIRED OXYGEN 32.0 % (21-100.0); PO2, ARTERIAL BG 136.6 mmHg (83.0-108.0); SOURCE, BLOOD GAS ARTERIAL; TEMPERATURE, FAHRENHEIT, BG 101.1 FAHREN (96.0-98.6)
[2025-03-09 13:26] LABS: ALLEN TEST, BLOOD GAS POS; SITE, BLOOD GAS RT RADIAL
[2025-03-09 13:27] LABS: FLOW, BLOOD GAS 3.00 L/min (0.00-15.00); O2 DEVICE,BLOOD GAS NC (ROOM AIR)
[2025-03-09] MEDS: ACETAMINOPHEN 650 MG/ISO-OSM 65 ML IV PRN (15:15)
[2025-03-09] MEDS ORDERED: SODIUM CHLORIDE 0.9% 250 ML IV ONE (22:57)
[2025-03-10] VITALS (19 sets, daily range): BP systolic 117–160; BP diastolic 57–81; PULSE 76–115; RESP 17–30; TEMP 98.9–101.6; O2SAT 40–99
[2025-03-10 00:16] LABS: GLUCOMETER DEV NAME(LOC) ICUN.5; GLUCOSE,POINT OF CARE 106 MG/DL (70-110)
[2025-03-10 03:41] LABS: GLUCOMETER DEV NAME(LOC) ICU.S6; GLUCOSE,POINT OF CARE 111 MG/DL (70-110)
[2025-03-10 06:30] LABS: PLATELET COUNT (AUTO) 177 K/uL (150-450); RED BLOOD CELL COUNT(AUTO) 3.45 MIL/uL (4.00-5.20); RED CELL DISTRIBUTION WIDTH 13.7 % (11.5-14.5); WHITE BLOOD COUNT (AUTO) 14.7 K/uL (4.5-11.0)
[2025-03-10 06:41] LABS: CALCIUM, TOTAL 8.6 mg/dL (8.8-10.5); CREATININE 0.42 mg/dL (0.60-1.30); GLOMERULAR FILTR. RATE CALC > 60 mL/min (>60); GLUCOSE,RANDOM 109 mg/dL (70-110); SODIUM SERUM 144 mmol/L (136-145); UREA NITROGEN, BLOOD 18 mg/dL (7-18)
[2025-03-10 06:55] LABS: GLUCOMETER DEV NAME(LOC) ICU.S6; GLUCOSE,POINT OF CARE 106 MG/DL (70-110)
[2025-03-10] MEDS ORDERED: FUROSEMIDE 40 MG/4 ML VIAL IVP SCH (13:15)
[2025-03-10] MEDS: FUROSEMIDE 40 MG/4 ML VIAL IVP SCH (13:28)
[2025-03-10 14:56] LABS: GLUCOMETER DEV NAME(LOC) ICUN.5; GLUCOSE,POINT OF CARE 111 MG/DL (70-110)
[2025-03-10] MEDS: HEPARIN SODIUM,PORCINE 5,000 UNITS/ML VIAL SQ SCH (16:17)
[2025-03-10] MEDS ORDERED: SODIUM CHLORIDE 0.9% 250 ML IV ONE (16:31)
[2025-03-10] MEDS: POTASSIUM CHLORIDE 10% 40 MEQ/30 ML LIQUID UDCUP GT PRN (20:48)
[2025-03-10] MEDS: ZOLPIDEM TARTRATE 5 MG TABLET PO PRN (20:49)
[2025-03-10] MEDS: MORPHINE SULFATE 2 MG/ML SYRINGE IVP PRN (23:58)
[2025-03-11] VITALS (16 sets, daily range): BP systolic 96–161; BP diastolic 57–99; PULSE 93–112; RESP 20–34; TEMP 98.8–100.7; O2SAT 93–98
[2025-03-11] MEDS: POTASSIUM CHL 10 MEQ/WATER 50 ML IV PRN (02:34)
[2025-03-11] MEDS: LABETALOL HCL 5 MG/ML 20 ML VIAL IVP PRN (04:41)
[2025-03-11 05:50] LABS: GLUCOMETER DEV NAME(LOC) ICUN.5; GLUCOSE,POINT OF CARE 129 MG/DL (70-110)
[2025-03-11 06:01] LABS: PLATELET COUNT (AUTO) 263 K/uL (150-450); RED BLOOD CELL COUNT(AUTO) 3.54 MIL/uL (4.00-5.20); RED CELL DISTRIBUTION WIDTH 13.8 % (11.5-14.5); WHITE BLOOD COUNT (AUTO) 14.4 K/uL (4.5-11.0)
[2025-03-11] MEDS: HYDROCODONE/ACETAMINOPHEN 5-325 MG TABLET PO PRN (08:19)
[2025-03-11 08:41] LABS: GLUCOMETER DEV NAME(LOC) ICU.S6; GLUCOSE,POINT OF CARE 121 MG/DL (70-110)
[2025-03-11 10:04] LABS: CALCIUM, TOTAL 8.8 mg/dL (8.8-10.5); CREATININE 0.58 mg/dL (0.60-1.30); GLOMERULAR FILTR. RATE CALC > 60 mL/min (>60); GLUCOSE,RANDOM 153 mg/dL (70-110); SODIUM SERUM 139 mmol/L (136-145); UREA NITROGEN, BLOOD 18 mg/dL (7-18)
[2025-03-11] MEDS: POTASSIUM CHLORIDE 20 MEQ ER TABLET PO PRN (13:16)
[2025-03-11 15:06] LABS: GLUCOMETER DEV NAME(LOC) ICUN.5; GLUCOSE,POINT OF CARE 125 MG/DL (70-110)
[2025-03-11 17:41] LABS: GLUCOMETER DEV NAME(LOC) ICU.S6; GLUCOSE,POINT OF CARE 123 MG/DL (70-110)
[2025-03-11] MEDS: METOPROLOL SUCCINATE 25 MG ER TABLET PO SCH (20:40)
[2025-03-11] MEDS: ENOXAPARIN SODIUM 80 MG/0.8 ML PF SYRINGE SQ SCH (20:43)
[2025-03-12] VITALS (17 sets, daily range): BP systolic 138–150; BP diastolic 55–74; PULSE 99–128; RESP 17–34; TEMP 98.5–99; O2SAT 93–100
[2025-03-12 06:11] LABS: PLATELET COUNT (AUTO) 294 K/uL (150-450); RED BLOOD CELL COUNT(AUTO) 3.54 MIL/uL (4.00-5.20); RED CELL DISTRIBUTION WIDTH 14.1 % (11.5-14.5); WHITE BLOOD COUNT (AUTO) 15.5 K/uL (4.5-11.0)
[2025-03-12 06:18] LABS: CALCIUM, TOTAL 8.5 mg/dL (8.8-10.5); CREATININE 0.49 mg/dL (0.60-1.30); GLOMERULAR FILTR. RATE CALC > 60 mL/min (>60); GLUCOSE,RANDOM 134 mg/dL (70-110); SODIUM SERUM 139 mmol/L (136-145); UREA NITROGEN, BLOOD 18 mg/dL (7-18)
[2025-03-12 08:05] LABS: GLUCOMETER DEV NAME(LOC) PVLAB.55; GLUCOSE,POINT OF CARE 135 MG/DL (70-110)
[2025-03-12 08:50] LABS: GLUCOMETER DEV NAME(LOC) ICU.S6; GLUCOSE,POINT OF CARE 121 MG/DL (70-110)
[2025-03-12] MEDS ORDERED: SODIUM CHLORIDE 0.9% 250 ML IV ONE (11:40)
[2025-03-13] VITALS (15 sets, daily range): BP systolic 134–157; BP diastolic 54–74; PULSE 93–117; RESP 14–24; TEMP 98.2–98.6; O2SAT 92–99
[2025-03-13 06:21] LABS: CALCIUM, TOTAL 9.0 mg/dL (8.8-10.5); CREATININE 0.45 mg/dL (0.60-1.30); GLOMERULAR FILTR. RATE CALC > 60 mL/min (>60); GLUCOSE,RANDOM 124 mg/dL (70-110); SODIUM SERUM 140 mmol/L (136-145); UREA NITROGEN, BLOOD 17 mg/dL (7-18)
[2025-03-13 06:22] LABS: PLATELET COUNT (AUTO) 394 K/uL (150-450); RED BLOOD CELL COUNT(AUTO) 3.53 MIL/uL (4.00-5.20); RED CELL DISTRIBUTION WIDTH 14.1 % (11.5-14.5); WHITE BLOOD COUNT (AUTO) 15.4 K/uL (4.5-11.0)
[2025-03-13] MEDS ORDERED: SODIUM CHLORIDE 0.9% 1,000 ML ONE (12:50)
[2025-03-14] VITALS (14 sets, daily range): BP systolic 138–148; BP diastolic 57–83; PULSE 77–115; RESP 18–20; TEMP 97.7–99; O2SAT 95–98
[2025-03-14 06:36] LABS: PLATELET COUNT (AUTO) 425 K/uL (150-450); RED BLOOD CELL COUNT(AUTO) 3.40 MIL/uL (4.00-5.20); RED CELL DISTRIBUTION WIDTH 13.7 % (11.5-14.5); WHITE BLOOD COUNT (AUTO) 12.5 K/uL (4.5-11.0)
[2025-03-14 07:00] LABS: CALCIUM, TOTAL 9.1 mg/dL (8.8-10.5); CREATININE 0.47 mg/dL (0.60-1.30); GLOMERULAR FILTR. RATE CALC > 60 mL/min (>60); GLUCOSE,RANDOM 119 mg/dL (70-110); SODIUM SERUM 137 mmol/L (136-145); UREA NITROGEN, BLOOD 16 mg/dL (7-18)
[2025-03-15] VITALS (13 sets, daily range): BP systolic 114–151; BP diastolic 49–73; PULSE 100–115; RESP 17–19; TEMP 98.2–99; O2SAT 95–99
[2025-03-15 05:41] LABS: PLATELET COUNT (AUTO) 492 K/uL (150-450); RED BLOOD CELL COUNT(AUTO) 3.32 MIL/uL (4.00-5.20); RED CELL DISTRIBUTION WIDTH 14.0 % (11.5-14.5); WHITE BLOOD COUNT (AUTO) 10.8 K/uL (4.5-11.0)
[2025-03-15 05:54] LABS: CALCIUM, TOTAL 8.8 mg/dL (8.8-10.5); CREATININE 0.50 mg/dL (0.60-1.30); GLOMERULAR FILTR. RATE CALC > 60 mL/min (>60); GLUCOSE,RANDOM 135 mg/dL (70-110); SODIUM SERUM 138 mmol/L (136-145); UREA NITROGEN, BLOOD 14 mg/dL (7-18)
[2025-03-15] MEDS: LATANOPROST 0.005% 2.5 ML OPHTHALMIC SOLUTION OU SCH (21:54)
[2025-03-16] VITALS (21 sets, daily range): BP systolic 134–158; BP diastolic 58–82; PULSE 85–116; RESP 16–20; TEMP 97.3–99.3; O2SAT 93–99
[2025-03-16] MEDS ORDERED: SODIUM BICARBONATE 50 MEQ/50 ML VIAL ONE (10:07)
[2025-03-16] MEDS ORDERED: HEPARIN SODIUM 1000 UNITS/NS 1,000 ML ONE (10:07)
[2025-03-16] MEDS ORDERED: LIDOCAINE/PF 1% 30 ML VIAL ONE (10:07)
[2025-03-16] MEDS ORDERED: MIDAZOLAM HCL 2 MG/2 ML VIAL ONE (10:48)
[2025-03-16] MEDS ORDERED: FentaNYL CITRATE PF 100 MCG/2 ML VIAL ONE (10:48)
[2025-03-16] MEDS: IOHEXOL 300 MG/ML 100 ML VIAL IARTER ONE (11:09)
[2025-03-16] MEDS: HEPARIN SODIUM 1000 UNITS/NS 1,000 ML IARTER ONE (11:10)
[2025-03-16] MEDS: MIDAZOLAM HCL 2 MG/2 ML VIAL IVP ONE (11:10)
[2025-03-16] MEDS: LIDOCAINE 1% 30 ML/SOD BICARB 8.4% 4 ML SQ ONE (11:10)
[2025-03-16] MEDS: FentaNYL CITRATE PF 100 MCG/2 ML VIAL IVP ONE ×2 (11:11→11:29)
[2025-03-17] VITALS (17 sets, daily range): BP systolic 106–155; BP diastolic 55–85; PULSE 104–118; RESP 16–20; TEMP 98–99; O2SAT 94–99
[2025-03-17 06:16] LABS: PLATELET COUNT (AUTO) 531 K/uL (150-450); RED BLOOD CELL COUNT(AUTO) 3.31 MIL/uL (4.00-5.20); RED CELL DISTRIBUTION WIDTH 14.9 % (11.5-14.5); WHITE BLOOD COUNT (AUTO) 8.2 K/uL (4.5-11.0)
[2025-03-17 06:31] LABS: CALCIUM, TOTAL 8.6 mg/dL (8.8-10.5); CREATININE 0.51 mg/dL (0.60-1.30); GLOMERULAR FILTR. RATE CALC > 60 mL/min (>60); GLUCOSE,RANDOM 126 mg/dL (70-110); SODIUM SERUM 139 mmol/L (136-145); UREA NITROGEN, BLOOD 12 mg/dL (7-18)
[2025-03-18] VITALS (10 sets, daily range): BP systolic 117–138; BP diastolic 62–84; PULSE 99–115; RESP 16–19; TEMP 97.9–98.8; O2SAT 95–100
[2025-03-18 06:03] LABS: PLATELET COUNT (AUTO) 582 K/uL (150-450); RED BLOOD CELL COUNT(AUTO) 3.48 MIL/uL (4.00-5.20); RED CELL DISTRIBUTION WIDTH 14.7 % (11.5-14.5); WHITE BLOOD COUNT (AUTO) 9.1 K/uL (4.5-11.0)
[2025-03-18 06:39] LABS: CALCIUM, TOTAL 8.7 mg/dL (8.8-10.5); CREATININE 0.48 mg/dL (0.60-1.30); GLOMERULAR FILTR. RATE CALC > 60 mL/min (>60); GLUCOSE,RANDOM 131 mg/dL (70-110); SODIUM SERUM 138 mmol/L (136-145); UREA NITROGEN, BLOOD 14 mg/dL (7-18)
[2025-03-18] MEDS: POTASSIUM CHLORIDE 20 MEQ ER TABLET PO PRN (09:55)
[2025-03-19] VITALS (16 sets, daily range): BP systolic 113–133; BP diastolic 53–77; PULSE 98–113; RESP 18–20; TEMP 97.9–99; O2SAT 95–99
[2025-03-19 06:07] LABS: PLATELET COUNT (AUTO) 616 K/uL (150-450); RED BLOOD CELL COUNT(AUTO) 3.49 MIL/uL (4.00-5.20); RED CELL DISTRIBUTION WIDTH 14.8 % (11.5-14.5); WHITE BLOOD COUNT (AUTO) 8.2 K/uL (4.5-11.0)
[2025-03-19 06:14] LABS: CALCIUM, TOTAL 8.9 mg/dL (8.8-10.5); CREATININE 0.52 mg/dL (0.60-1.30); GLOMERULAR FILTR. RATE CALC > 60 mL/min (>60); GLUCOSE,RANDOM 126 mg/dL (70-110); SODIUM SERUM 138 mmol/L (136-145); UREA NITROGEN, BLOOD 16 mg/dL (7-18)
[2025-03-19] MEDS: FUROSEMIDE 40 MG TABLET PO SCH (09:01)
[2025-03-20] VITALS (13 sets, daily range): BP systolic 106–131; BP diastolic 59–71; PULSE 90–117; RESP 16–18; TEMP 98.1–98.6; O2SAT 95–100
[2025-03-20 06:35] LABS: PLATELET COUNT (AUTO) 621 K/uL (150-450); RED BLOOD CELL COUNT(AUTO) 3.53 MIL/uL (4.00-5.20); RED CELL DISTRIBUTION WIDTH 15.0 % (11.5-14.5); WHITE BLOOD COUNT (AUTO) 8.0 K/uL (4.5-11.0)
[2025-03-20 06:55] LABS: CALCIUM, TOTAL 8.8 mg/dL (8.8-10.5); CREATININE 0.63 mg/dL (0.60-1.30); GLOMERULAR FILTR. RATE CALC > 60 mL/min (>60); GLUCOSE,RANDOM 126 mg/dL (70-110); SODIUM SERUM 138 mmol/L (136-145); UREA NITROGEN, BLOOD 11 mg/dL (7-18)
[2025-03-21] VITALS (12 sets, daily range): BP systolic 108–127; BP diastolic 53–90; PULSE 86–117; RESP 16–19; TEMP 97.7–98.6; O2SAT 95–100
[2025-03-21 08:12] LABS: PLATELET COUNT (AUTO) 577 K/uL (150-450); RED BLOOD CELL COUNT(AUTO) 3.55 MIL/uL (4.00-5.20); RED CELL DISTRIBUTION WIDTH 14.7 % (11.5-14.5); WHITE BLOOD COUNT (AUTO) 7.1 K/uL (4.5-11.0)
[2025-03-21 08:23] LABS: CALCIUM, TOTAL 8.6 mg/dL (8.8-10.5); CREATININE 0.56 mg/dL (0.60-1.30); GLOMERULAR FILTR. RATE CALC > 60 mL/min (>60); GLUCOSE,RANDOM 119 mg/dL (70-110); SODIUM SERUM 139 mmol/L (136-145); UREA NITROGEN, BLOOD 13 mg/dL (7-18)
[2025-03-22] VITALS (14 sets, daily range): BP systolic 111–127; BP diastolic 48–70; PULSE 92–110; RESP 14–19; TEMP 98.1–99.1; O2SAT 93–99
[2025-03-22 05:59] LABS: PLATELET COUNT (AUTO) 527 K/uL (150-450); RED BLOOD CELL COUNT(AUTO) 3.41 MIL/uL (4.00-5.20); RED CELL DISTRIBUTION WIDTH 14.4 % (11.5-14.5); WHITE BLOOD COUNT (AUTO) 7.1 K/uL (4.5-11.0)
[2025-03-22 06:10] LABS: CALCIUM, TOTAL 8.7 mg/dL (8.8-10.5); CREATININE 0.52 mg/dL (0.60-1.30); GLOMERULAR FILTR. RATE CALC > 60 mL/min (>60); GLUCOSE,RANDOM 116 mg/dL (70-110); SODIUM SERUM 138 mmol/L (136-145); UREA NITROGEN, BLOOD 12 mg/dL (7-18)
[2025-03-23] VITALS (7 sets, daily range): BP systolic 101–125; BP diastolic 60–76; PULSE 93–105; RESP 16–18; TEMP 97.7–98.4; O2SAT 94–100
== END 2025-03-23 18:30 | DRG 870 ==
LOC: EMS 05:02 → EDH 07:12 → UNDOADMIN 07:22 → EDH 07:22 → ICU 08:40 → 5N 03-13 09:25
PROVIDERS: ADMIT Hospitalist; ATTEND Hospitalist
PROC: 06HY33Z Insertion of Infusion Device into Lower Vein, Percutaneous Approach (ICD-10-PCS; principal; 2025-03-03)
PROC: B54BZZA Ultrasonography of Right Lower Extremity Veins, Guidance (ICD-10-PCS; 2025-03-03)
PROC: 04HY32Z Insertion of Monitoring Device into Lower Artery, Percutaneous Approach (ICD-10-PCS; 2025-03-03)
PROC: 5A1955Z Respiratory Ventilation, Greater than 96 Consecutive Hours (ICD-10-PCS; 2025-03-03)
PROC: 0BH17EZ Insertion of Endotracheal Airway into Trachea, Via Natural or Artificial Opening (ICD-10-PCS; 2025-03-03)
PROC: 5A12012 Performance of Cardiac Output, Single, Manual (ICD-10-PCS; 2025-03-03)
PROC: 5A0945A Assistance with Respiratory Ventilation, 24-96 Consecutive Hours, High Flow/Velocity Cannula (ICD-10-PCS; 2025-03-09)
PROC: 4A023N8 Measurement of Cardiac Sampling and Pressure, Bilateral, Percutaneous Approach (ICD-10-PCS; 2025-03-16)
PROC: B2111ZZ Fluoroscopy of Multiple Coronary Arteries using Low Osmolar Contrast (ICD-10-PCS; 2025-03-16)
DX: A41.9 Sepsis, unspecified organism (principal); J96.01 Acute respiratory failure with hypoxia; J69.0 Pneumonitis due to inhalation of food and vomit; I46.9 Cardiac arrest, cause unspecified; I50.21 Acute systolic (congestive) heart failure; J96.02 Acute respiratory failure with hypercapnia; J18.9 Pneumonia, unspecified organism; E87.20 Acidosis, unspecified; I42.9 Cardiomyopathy, unspecified; E87.4 Mixed disorder of acid-base balance; I82.4Z1 Acute embolism and thrombosis of unspecified deep veins of right distal lower extremity; M62.82 Rhabdomyolysis; J91.8 Pleural effusion in other conditions classified elsewhere; I42.8 Other cardiomyopathies; I11.0 Hypertensive heart disease with heart failure; D64.9 Anemia, unspecified; E03.9 Hypothyroidism, unspecified; E05.90 Thyrotoxicosis, unspecified without thyrotoxic crisis or storm; E78.5 Hyperlipidemia, unspecified; Z83.3 Family history of diabetes mellitus; Z91.81 History of falling
CPT/HCPCS: 31500; 70450; 71045; 71260; 72193; 74160; 76700; 80048; 80053; 80074; 80076; 81001; 81002; 82550; 82805; 82962; 83036; 83605; 83735; 83880; 84100; 84132; 84145; 84439; 84443; 84481; 84484; 85007; 85025; 85027; 85610; 85730; 87040; 87070; 87081; 92526; 92610; 93005; 93306; 93460; 93925; 93970; 93971; 94002; 94003; 94640; 94644; 94760; 97110; 97116; 97163; 97167; 97530; 97535; 99291; G0238; J0131; J1630; J1644; J1650; J1938; J2250; J2270; J2470; J2543; J2704; J2919; J3010; J3480; J3490; J7030; J7040; J7050; Q9967; 36415-L1; 36415-TC; J7613